=== PATIENT | female | born 1990 | race Caucasian/White ===

== ENCOUNTER 2017-10-02 00:42 | Inpatient (IN) ==
[2017-10-02] MEDS ORDERED: Oxytocin 30 Units/500ml Premix 30 UNITS/500 ML BAG IV.SIG ONE (01:52)
[2017-10-02] MEDS ORDERED: Sod Chloride 0.9% Inj 1,000 ML IV.CONT PRN (01:52)
[2017-10-02] MEDS ORDERED: fentaNYL Citrate Inj 100 MCG/2 ML Ampul IV.PUSH PRN ×2 (01:52)
[2017-10-02] MEDS ORDERED: Sodium Chlor 0.9% Inj 500 ML IV.SIG PRN (01:52)
[2017-10-02] MEDS ORDERED: Naloxone Inj 0.4 MG/ML Vial IV.PUSH PRN ×2 (01:52→04:51)
--- NOTE | 2017-10-02 01:52 | ED ---
History of Present Illness Primary Care Physician: UNKNOWN Chief Complaint: LOF and contractions History of Present Illness: 27 presents at 39 wks c/o contractions since 2:30pm and water breaking at 11:55pm. +FM, denies vaginal bleeding or complications with . care is with dr. jhaveri. Review of Systems All other systems reviewed negative except as stated in HPI PMFSH - Medical / Surgical Hx Neg / Unobtainable Medical Problems Denied: Yes - Surgical History Surgical History: Surgical History (Last Updated 10/02/17 @ 01:45 by Leigha Smith MD) H/O LEEP (Acute) - Tobacco History Smoking Status: Never smoker - Alcohol History How Often Do You Have a Drink Containing Alcohol: Never - Substance Use History Substance History: No History of Abuse Medications and Allergies Allergies Allergy/AdvReac Type Severity Reaction Status Date / Time No Known Allergies Allergy Verified 10/02/17 01:43 Home Medications Medication Instructions Recorded Confirmed Type vit-iron fum-folic ac 1 tab PO DAILY 10/02/17 10/02/17 History [ Vitamin] Exam Vital signs: Vital Signs 10/02/17 01:30 Temperature 98.4 F Pulse Rate 72 Respiratory Rate 18 Blood Pressure 145/81 H - Constitutional no acute distress - Routine Neck Exam Present: supple - Routine Respiratory Exam Present: CTA bilaterally - Routine Cardiovascular Exam Present: RRR - Routine Abdominal Exam Present: soft - Routine Exam Comments: sve: 7/90/0, vtx FHTs 140s reactive, cat 1 toco q2-3 min amnisure positive Assessment and Plan - Diagnosis (1) First stage of labor established Status: Acute Plan: admit epidural prn d/w dr. jhaveri (2) SROM (spontaneous rupture of membranes) Status: Acute Plan: gbs negative Discharge Plan - Discharge Disposition Patient Disposition: 28 Still Patient - Discharge Condition Condition: Good - Physicians Team ED Provider: Roland Jhaveri Primary Care Provider: UNKNOWN,
[2017-10-02] MEDS ORDERED: Citric Acid/Sodium Citrate Liq 30 ML UDC PO SCH (02:00)
[2017-10-02] MEDS ORDERED: Lidocaine PF 1% Inj 30 ML Vial ONE (02:30)
[2017-10-02 02:34] LABS: Baso % (Auto) 0.3 % (0.0-2.0); Eos % (Auto) 0.2 % (0.0-4.0); Hematocrit 38.3 % (35.0-46.0); Hemoglobin 13.3 gm/dL (11.6-15.3); Lymph # (Auto) 2.1 th/mm3 (1.0-4.8); Lymph % (Auto) 13.8 % (9.0-44.0); Mean Corpuscular HGB Conc 34.7 % (32.0-36.0); Mean Corpuscular Hemoglobin 31.9 pg (27.0-34.0); Mono % (Auto) 6.7 % (0.0-8.0); Platelet Count 211 th/mm3 (150-450); Red Blood Count 4.16 mil/mm3 (4.00-5.30); Red Cell Distribution Width 13.2 % (11.6-17.2); White Blood Count 15.2 th/mm3 (4.0-11.0)
[2017-10-02 02:44] LABS: Amphetamine Urine With Conf Neg (Neg); Benzodiazepine Urine With Conf Neg (Neg)
[2017-10-02 02:47] LABS: Bacteria,Urine Rare /hpf; Bilirubin,Urine Negative (Negative); Clarity,Urine Hazy (Clear); Color,Urine Yellow (Yellw/Straw); Glucose,Urine (UA) Negative (Negative); Leukocyte Esterase,Urine Negative (Negative); Nitrite,Urine Negative (Negative); Specific Gravity,Urine 1.015 (1.002-1.035)
[2017-10-02] MEDS ORDERED: Oxytocin 30 Units/500ml Premix 30 UNITS/500 ML BAG IV.SIG PRN (03:50)
--- NOTE | 2017-10-02 04:03 | MH ---
cc: Roland Jhaveri MD DATE OF ADMISSION: 10/02/2017 ADMITTING DIAGNOSIS: Term , active labor. HISTORY OF PRESENT ILLNESS: A 27-year-old white female, para 0, LMP of 12/29/2016, EDC of 10/05/2017. Her course has been benign. She began having contractions at 2:30 p.m. yesterday, had spontaneous rupture of membranes, clear fluid at 11:50 p.m. and now presents in active labor. PAST SURGICAL HISTORY: LEEP procedure in 2007 for MARK 3. MEDICATIONS: Vitamins. ALLERGIES: NONE. TRANSFUSIONS: None. SOCIAL HISTORY: . She works as a dental administrative services assistant. Alcohol, tobacco, and drugs were none. FAMILY HISTORY: Noncontributory. REVIEW OF SYSTEMS: Negative. PHYSICAL EXAMINATION: GENERAL: A well-nourished, well-developed white female. HEENT: Normal. CHEST: Clear. Regular rate. BREASTS: Symmetrical. ABDOMEN: Gravid. EFW of 3400 grams. PELVIC: Cervix is now 7/ complete, vertex, ruptured. EXTREMITIES: Normal. ASSESSMENT: As above. PLAN: She is now admitted for delivery. Her GBS culture is negative and she is desiring natural childbirth at this time. MD MARVIN Duffy/shelley/fred , 02:18 AM , 02:21 AM MTDFrancisco
[2017-10-02] MEDS ORDERED: Ketorolac Inj 30 MG/ML (IVP) Vial ONE (04:41)
[2017-10-02] MEDS ORDERED: Zolpidem Tartrate 5 MG Tablet PO PRN (04:51)
[2017-10-02] MEDS ORDERED: Acetaminophen 325 MG Tablet PO PRN (04:51)
[2017-10-02] MEDS ORDERED: Bisacodyl 10 MG Supp RECTAL PRN (04:51)
[2017-10-02] MEDS ORDERED: Witch Hazel 50%/Glyderin 12.5% 40 Pad Jar RECTAL PRN (04:51)
[2017-10-02] MEDS ORDERED: Benzocaine 20% Top Spray 60 ML Can TOPICAL PRN (04:51)
[2017-10-02] MEDS ORDERED: Ketorolac Inj 30 MG/ML (IVP) Vial IV.PUSH ONE (05:00)
[2017-10-02] MEDS ORDERED: Oxytocin 30 Units/500ml Premix 30 UNITS/500 ML BAG IV.CONT SCH (05:00)
--- NOTE | 2017-10-02 07:13 | MP ---
cc: Roland Jhaveri MD DATE OF OPERATION: 10/02/2017 DETAILS OF DELIVERY: The patient is 27-year-old white female, para 0, EDC of 10/05/2017, admitted in active labor. She progressed to a spontaneous vaginal delivery over a midline episiotomy of a viable vigorous female. Apgars were 8 and 9, weight 7 pounds even, in a ROP position. Following delivery of the head, the mouth was suctioned, the baby was placed on the mom's abdomen and chest to hold and then delayed cord clamp was done. The placenta delivered intact. The episiotomy was repaired with lidocaine 20 mL of 1% and 2-0 chromic and 2-0 Vicryl. Post-repair revealed no bleeding. Intact cervix and rectal exam was normal. All counts were correct. Estimated blood loss was 300 mL. MD MARVIN Duffy/KD , 04:58 AM , 05:01 AM
[2017-10-02] MEDS: Ibuprofen 400 MG Tablet PO PRN ×2 (11:45→20:20)
[2017-10-02] MEDS ORDERED: Diphtheria/Tetanus/Pertussis Vaccine Inj 0.5 ML Syringe IM ONE (16:00)
[2017-10-02] MEDS ORDERED: Measles/Mumps/Rubella Vaccine Inj 0.5 ML Vial SQ ONE (16:00)
[2017-10-02] MEDS: Senna/Docusate Sodium 8.6/50 MG Tablet PO SCH (20:20)
[2017-10-02 20:33] VITALS: RESP 18
[2017-10-03] MEDS: Ibuprofen 400 MG Tablet PO PRN ×2 (05:44→17:00)
[2017-10-03 08:22] VITALS: TEMP 98.3
[2017-10-03] MEDS: Senna/Docusate Sodium 8.6/50 MG Tablet PO SCH (09:02)
[2017-10-03 20:10] VITALS: BP 155/87; PULSE 78
[2017-10-04] MEDS: Ibuprofen 400 MG Tablet PO PRN ×2 (02:54→12:15)
--- NOTE | 2017-10-04 08:34 | MD ---
cc: Roland Jhaveri MD DATE OF DISCHARGE: 10/04/2017 ADMITTING DIAGNOSIS: Term , active labor. DISCHARGE DIAGNOSIS: Term , active labor, delivered. HISTORY OF PRESENT ILLNESS: A 27-year-old white female, para 0, LMP of 12/29/2016, EDC of 10/05/2017, was admitted in active labor on the morning of 10/02/2017. Went on to a spontaneous vaginal delivery over a midline episiotomy, OP presentation a vigorous female, Apgars 8 and 9, weight 7 pounds even. Baby's name Uzma and she is . did well. Discharged home in stable condition on 10/04/2017. Her Rh type is positive. Her GBS predelivery was negative. 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 She will take OTC Motrin and Tylenol for pain relief, Colace for stool softener and OTC laxative as needed. She will call me for abnormal pain, bleeding, temperature, signs of infection or depression. Roland Jhaveri MD JAW/TL , 08:22 AM , 08:27 AM
[2017-10-04 10:05] LABS: Hematocrit 34.4 % (35.0-46.0); Hemoglobin 11.7 gm/dL (11.6-15.3); Mean Corpuscular HGB Conc 33.9 % (32.0-36.0); Mean Corpuscular Hemoglobin 32.1 pg (27.0-34.0); Mean Corpuscular Volume 94.7 fL (80.0-100.0); Mean Platelet Volume 7.9 fL (7.0-11.0); Platelet Count 201 th/mm3 (150-450); Red Blood Count 3.63 mil/mm3 (4.00-5.30); Red Cell Distribution Width 13.6 % (11.6-17.2); White Blood Count 10.2 th/mm3 (4.0-11.0)
[2017-10-04] MEDS: Senna/Docusate Sodium 8.6/50 MG Tablet PO SCH (12:16)
== END 2017-10-04 14:44 | disposition home or self-care (01) ==
LOC: HOBED 00:42 → MERGE 01:46 → H2E 01:46 → H1EA 07:42
PROVIDERS: ADMIT Obstetrics & Gynecology; ATTEND Obstetrics & Gynecology